=== PATIENT | female | born 1985 | race Caucasian/White ===

== ENCOUNTER 2019-07-27 23:37 | Emergency (ER) | payer OTHER ==
--- NOTE | 2019-07-28 01:08 | EDM.PDOC ---
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 pt states its a dull ache that is central to lower stomach rates 4/10 but 8-9 & sharp with movement. No OB appointment at this time. LMP 06/11/19. G 2 P 1 miscarry in 2007. denies any dysuria or blood in urine [ End ] Above-noted. On my exam the patient says that this is a cramping type pain in the lower abdomen or pelvis. No spotting. She has not yet had an OB ultrasound. There is been no fever no nausea no vomiting. She is 3 para 1. First was lost by spontaneous . She has not taken any medication or tried any other measure to moderate her symptoms. Risk factor would be history of spontaneous and probable criteria for high risk . Lower Abdomen Pain Score (Numeric/FACES): 4 - Related Data Allergies Allergy/AdvReac Type Severity Reaction Status Date / Time codeine AdvReac Vomiting Verified 07/27/19 23:55 Home Meds: Home Meds . 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: Reports: Endometriosis, , Spontaneous - Past Surgical History HEENT Surgical History: Reports: Oral Surgery Female Surgical History: Reports: Other (See Below) Other Female Surgeries/Procedures: endometrosis/ovarian cyst laproscopic sx 2016 Musculoskeletal Surgical History: Reports: Other (See Below) Other Musculoskeletal Surgeries/Procedures:: R foot sesmoid bone sx Social & Family History - Family History Family Medical History: Noncontributory - Tobacco Use Smoking Status *Q: Never Smoker - Caffeine Use Caffeine Use: Reports: Soda - Recreational Drug Use Recreational Drug Use: No ED ROS GENERAL - Review of Systems Review Of Systems: Comprehensive ROS is negative, except as noted in HPI. ED EXAM - Physical Exam Exam: See Below Exam Limited By: No Limitations General Appearance: Alert, WD/WN, No Apparent Distress Eye Exam: Bilateral Eye: EOMI, PERRL Ears: Normal External Exam Nose: Normal Inspection Throat/Mouth: Normal Inspection Head: Atraumatic, Normocephalic Neck: Normal Inspection, Supple Respiratory/Chest: No Respiratory Distress, Lungs Clear Cardiovascular: Regular Rate, Rhythm GI/Abdominal Exam: Soft, Non-Tender Back Exam: Normal Inspection Extremities: Normal Inspection Neurological: Alert, Oriented, Normal Cognition, Normal Gait Psychiatric: Normal Affect, Normal Mood Skin Exam: Warm, Dry Course - Vital Signs Last Recorded V/S: Last Vital Signs Temp 36.4 C 07/27/19 23:53 Pulse 83 07/27/19 23:53 Resp 14 07/27/19 23:53 BP 121/83 07/27/19 23:53 Pulse Ox 100 07/27/19 23:53 - Orders/Labs/Meds Orders: Active Orders 24 hr Category Date Time Status OB Transvaginal [US] Stat Exams 07/28/19 00:00 Taken CULTURE URINE [] Stat Lab 07/28/19 00:33 Received Labs: Laboratory Tests 07/28/19 07/28/19 07/28/19 Range/Units 00:15 00:15 00:33 WBC 11.86 H (3.98-10.04) K/mm3 RBC 4.50 (3.98-5.22) M/mm3 Hgb 11.8 (11.2-15.7) gm/dl Hct 35.8 (34.1-44.9) % MCV 79.6 (79.4-94.8) fl MCH 26.2 (25.6-32.2) pg MCHC 33.0 (32.2-35.5) g/dl RDW Std Deviation 49.9 H (36.4-46.3) fL Plt Count 326 (182-369) K/mm3 MPV 10.5 (9.4-12.3) fl Neut % (Auto) 62.8 (34.0-71.1) % Lymph % (Auto) 26.1 (19.3-51.7) % [place] % (Auto) 9.1 (4.7-12.5) % Eos % (Auto) 1.6 (0.7-5.8) Baso % (Auto) 0.3 (0.1-1.2) % Neut # (Auto) 7.45 H (1.56-6.13) K/mm3 Lymph # (Auto) 3.10 (1.18-3.74) K/mm3 [place] # (Auto) 1.08 H (0.24-0.36) K/mm3 Eos # (Auto) 0.19 (0.04-0.36) K/mm3 Baso # (Auto) 0.03 (0.01-0.08) K/mm3 Sodium 135 L (136-145) mEq/L Potassium 4.0 (3.5-5.1) mEq/L Chloride 101 (98-107) mEq/L Carbon Dioxide 24 (21-32) mEq/L Anion Gap 14.0 (5-15) BUN 15 (7-18) mg/dL Creatinine 0.8 (0.55-1.02) mg/dL Est Cr Clr Drug Dosing 103.55 mL/min Estimated GFR (MDRD) > 60 (>60) mL/min BUN/Creatinine Ratio 18.8 H (14-18) Glucose 97 (74-106) mg/dL Calcium 8.7 (8.5-10.1) mg/dL Total Bilirubin 1.5 H (0.2-1.0) mg/dL AST 12 L (15-37) U/L ALT 25 (14-59) U/L Alkaline Phosphatase 44 L (46-116) U/L Total Protein 7.1 (6.4-8.2) g/dl Albumin 3.4 (3.4-5.0) g/dl Globulin 3.7 gm/dL Albumin/Globulin Ratio 0.9 L (1-2) Lipase 189 (73-393) U/L HCG, Quant 61386.0 mIU/mL Urine Color Yellow (Yellow) Urine Appearance Clear (Clear) Urine pH 6.5 (5.0-8.0) Ur Specific [place] 1.020 (1.005-1.030) Urine Protein Negative (Negative) Urine Glucose (UA) Negative (Negative) Urine Ketones Negative (Negative) Urine Occult Blood Trace-intact H (Negative) Urine Nitrite Negative (Negative) Urine Bilirubin Negative (Negative) Urine Urobilinogen 0.2 (0.2-1.0) Ur Leukocyte Esterase 1+ H (Negative) Urine RBC 0-5 (0-5) /hpf Urine WBC 0-5 (0-5) /hpf Ur Epithelial Cells 0-5 (0-5) /hpf Urine Bacteria Not seen (FEW) /hpf Urine Mucus Not seen (FEW) /hpf Meds: Medications Discontinued Medications Generic Name Dose Route Start Last Admin Trade Name Cedric PRN Reason Stop Dose Admin Acetaminophen 650 mg 07/28/19 01:56 07/28/19 01:59 Tylenol PO 07/28/19 01:57 650 mg NOW ONE Administration - Re-Assessments/Exams Free Text/Narrative Re-Assessment/Exam: 07/28/19 02:49 There are no salient abnormal findings to explain the cramping pelvic pain. Ultrasound demonstrates twin with approximate gestational age of 6 weeks. See recommendations for patients below. Departure - Departure Time of Disposition: 02:49 Disposition: Home, Self-Care 01 Condition: Good Clinical Impression: Cramping affecting , antepartum Twin gestation in first trimester Qualifiers: Multiple gestation type: dichorionic and diamniotic Qualified Code(s): O30.041 - Twin , dichorionic/diamniotic, first trimester - Discharge Information Referrals: PCP,Not In Area [Primary Care Provider] - Forms: ED Department Discharge Additional Instructions: You have an approximate 6-week with twins. 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 Any other troubling symptoms return to ER right away. Sepsis Event Note - Evaluation Sepsis Screening Result: No Definite Risk - Focused Exam Vital Signs: Vital Signs Temp Pulse Resp BP Pulse Ox 07/27/19 23:53 36.4 C 83 14 121/83 100 Date Exam was Performed: 07/28/19 Time Exam was Performed: 02:48 - My Orders Last 24 Hours: My Active Orders 07/28/19 00:00 OB Transvaginal [US] Stat 07/28/19 00:33 CULTURE URINE [RM] Stat - Assessment/Plan Last 24 Hours: My Active Orders 07/28/19 00:00 OB Transvaginal [US] Stat 07/28/19 00:33 CULTURE URINE [RM] Stat
[2019-07-28] MEDS ORDERED: Acetaminophen 325 MG Tab PO ONE (01:56)
--- NOTE | 2019-07-29 07:03 | US ---
First trimester obstetrical ultrasound (multiple gestation): Multiple real-time images were obtained transvaginally. Comparison: No previous obstetrical imaging. Dates: Gestation A: CASANDRA 03/14/20, gestational age 7 weeks 1 day Gestation B: CASANDRA 03/18/20, gestational age 6 weeks 4 days Findings: Two gestational sacs are seen. poles identified within both gestational sacs. Amniotic fluid volume is normal. Maternal ovaries are seen and appear within normal limits. No subchorionic hemorrhage is noted. Measurements (gestation A): Gestational sac: 2.61 cm - 7 weeks 4 days [place]-rump length: 0.72 cm - 6 weeks 4 days Heart rate: 115 bpm Measurements (gestation B): [place]-rump length: 0.68 cm - 6 weeks 4 days Heart rate: 122 bpm Impression: 1. Twin and 2 amniotic sacs. Dates as noted above. 2. No complicating process is seen by ultrasound at this time. Diagnostic code #1 This report was dictated in [place] Standard Time I agree with preliminary report from [facility], finalized on 07/28/19, 3:38 AM Central Time
== END 2019-07-28 03:06 | disposition home or self-care (01) ==
LOC: JD.ED 23:37
DX: O99.89 Other specified diseases and conditions complicating pregnancy, childbirth and the puerperium (principal); R10.30 Lower abdominal pain, unspecified; O30.041 Twin pregnancy, dichorionic/diamniotic, first trimester; Z88.5 Allergy status to narcotic agent
CPT/HCPCS: 36415; 76817; 80053; 81001; 83690; 84702; 85025; 87086; 87088; 99284; A9270; 99283